=== PATIENT | male | born 1985 | race Caucasian/White ===

== ENCOUNTER 2016-06-19 07:39 | Emergency (ER) | payer OTHER ==
[2016-06-19 08:23] LABS: CHLORIDE,CL 106 mmol/L (98-107); SODIUM,NA 141 mmol/L (136-145)
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
[2016-06-19 08:45] LABS: BASE EXCESS ARTERIAL 0 mmol/L (-2-3); BICARBONATE,ARTERIAL 25.5 mmol/L (22-26); O2 DELIVERY DEVICE ROOM AIR; O2 SATURATION ARTERIAL 97 % (95-98); PCO2 ARTERIAL 44 mmHG (35-45); PO2 ARTERIAL 97 mmHG (80-105)
== END 2016-06-19 14:29 | disposition home or self-care (01) ==
LOC: LL.ED 07:39
DX: S70.212A Abrasion, left hip, initial encounter (principal); T68.XXXA Hypothermia, initial encounter; F17.200 Nicotine dependence, unspecified, uncomplicated; V29.9XXA Motorcycle rider (driver) (passenger) injured in unspecified traffic accident, initial encounter
CPT/HCPCS: 36415; 70450; 72125; 73502; 80053; 80305; 81001; 82803; 85025; 99285; G0480; 99284